=== PATIENT | male | born 1950 | race African-American/Black ===

== ENCOUNTER 2016-08-25 11:17 | Inpatient (IN) | payer MEDICARE ==
[2016-08-25 12:10] LABS: Hematocrit 36 % (42-52); Hemoglobin 11.8 g/dl (14.0-18.0); Mean Corpuscular HGB Conc 33 g/dl (31-36); Mean Corpuscular Hemoglobin 27 pg (27-31); Mean Corpuscular Volume 83 fL (80-94); Mean Platelet Volume 7 um3 (7.4-10.4); Red Blood Count 4.34 10^6/ul (4.0-5.4); Red Cell Distribution Width 14 % (10.5-15); White Blood Count 5.3 10^3/ul (3.5-10.8)
--- NOTE | 2016-08-25 12:15 | RAD ---
INDICATION: Weakness for 2 days COMPARISON: None TECHNIQUE: Noncontrast axial source images were acquired from the skull base to the vertex. FINDINGS: Ventricles/sulci: There is cortical atrophy with compensatory dilatation of the CSF spaces. Brain parenchyma: There is extensive periventricular and subcortical white matter change compatible with chronic ischemia. Intracranial hemorrhage:None. Extra-axial spaces: There are no abnormal extra axial fluid collections or evidence of extra-axial mass. Calvarium: There is no calvarial fracture or other calvarial abnormality. Scalp: There is no evidence of scalp or extracalvarial soft tissue abnormality. Paranasal sinuses/mastoid: The paranasal sinuses and mastoid air cells are clear. Other: None. IMPRESSION: CORTICAL ATROPHY WITH CHRONIC MICROVASCULAR ISCHEMIC CHANGES. NO ACUTE FINDINGS.
[2016-08-25 12:32] LABS: BUN/Creatinine Ratio 16.5 (8-20); Calcium 9.6 mg/dL (8.6-10.3); EGFR African American 107.2 (>60); EGFR Non-African American 83.4 (>60); Globulin 4.2 g/dL (2-4); Potassium 3.8 mmol/L (3.5-5.0); Total Bilirubin 0.8 mg/dL (0.2-1.0); Total Protein 8.2 g/dL (6.4-8.9)
[2016-08-25 12:34] LABS: Troponin I 0.02 ng/mL (<0.04)
[2016-08-25 15:32] LABS: Urine Bacteria Absent (Absent); Urine Bilirubin Negative (Negative); Urine Glucose Negative (Negative); Urine Nitrite Negative (Negative)
[2016-08-25] MEDS ORDERED: Aspirin TAB* 325 MG PO ONE (15:51)
[2016-08-25] MEDS: Atorvastatin* 40 MG TAB PO SCH (16:37)
--- NOTE | 2016-08-25 17:05 | RAD ---
Indication: Stroke. Duplex Doppler sonography of the carotid arteries was performed. The right common carotid artery demonstrates no intimal wall thickening. Minimal plaque is noted in the carotid bulb. Peak systolic velocity of the distal right common carotid artery 68 cm/s. Peak systolic velocity of the proximal right internal carotid artery is 40 cm/s. The ICA/CCA ratio is 0.58. Right vertebral artery demonstrates antegrade flow. The left common carotid artery demonstrates no evidence of intimal wall thickening or plaque. Peak systolic velocity of the distal left common carotid artery is 65 cm/s. Peak systolic velocity of the left internal carotid artery is 37 cm/s. The ICA/CCA ratio is 0.56. Left vertebral artery demonstrates antegrade flow. IMPRESSION: Less than 50% stenosis of both internal carotid arteries with minimal plaque in the right proximal internal carotid artery.
--- NOTE | 2016-08-25 17:53 | RAD ---
Indication: Stroke. Image sequences: Sagittal and axial T1, axial T2, FLAIR, diffusion and susceptibility weighted images of the brain were obtained. Ventricular structures are midline. No midline shift is noted. There is central and cortical atrophy noted. Focal area of restriction of diffusion is noted in the deep white matter of the right frontal lobe. This is consistent with a lacunar infarct. No other areas of restriction of diffusion is noted. The FLAIR images demonstrates periventricular signal abnormalities consistent with chronic ischemic White matter change. The susceptibility weighted images demonstrates multiple areas of punctate susceptibility artifact in the basal ganglia bilaterally as well as in the left occipital lobe. These likely represent sequela from prior hemorrhages. Mastoid air cells are unremarkable. Mucus retention cysts are noted in both maxillary sinuses. IMPRESSION: ATROPHY WITH ACUTE LACUNAR INFARCT IN THE RIGHT FRONTAL LOBE ADJACENT TO THE RIGHT PERIVENTRICULAR WHITE MATTER. AREAS OF SUSCEPTIBILITY IN THE BASAL GANGLIA AND TEMPORAL LOBES BILATERALLY WELL THE LEFT OCCIPITAL LOBE CONSISTENT WITH PRIOR PETECHIAL HEMORRHAGE.
--- NOTE | 2016-08-25 18:39 | HP ---
ADMISSION HISTORY AND PHYSICAL: DATE OF ADMISSION: 08/25/16 PRIMARY CARE PROVIDER: Dr. Crooks. CONSULTING NEUROLOGIST: Dr. Bland. ADMITTING PROVIDER: FLORES Serra. SUPERVISING PHYSICIAN: Dr. Bhavesh Rodríguez* (dictated by FLORES Serra). CHIEF COMPLAINT: Left-sided weakness and lightheadedness. HISTORY OF PRESENT ILLNESS: This is an 66-year-old gentleman with a history of hypertension and obstructive sleep apnea who was seen in his primary care provider's office for the complaint of left hip pain earlier today. It was at that time that his noted that he seems to be dragging his leg and favoring his left arm. He then admitted that he was having left-sided weakness for the last 2 days. The patient has had intermittent hip pain and this is not necessarily related complaint. He denied any associated numbness, tingling, or radiation of his pain down the left leg. He has also been struggling with lightheadedness again probably for several months it seems to be positional in nature. He was treated with oxybutynin for some bladder instability and that was discontinued approximately 6 weeks ago and he noted no improvement in his feelings of lightheadedness since discontinuing that medication. The patient denies any other acute illness recently. No associated chest pain or shortness of breath. The patient is unable to give a clear story if there was a sudden onset in his left-sided weakness. The patient's has noted no changes to his speech habits, facial weakness, changes in behavior. 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 The patient passed a bedside swallow evaluation in the emergency department. Due to these symptoms, the patient was referred for evaluation for admission for concern for CVA. PAST MEDICAL HISTORY: 1. Hypertension. 2. Obstructive sleep apnea. 3. Bladder instability. SURGICAL HISTORY: Hemorrhoidectomy. HOME MEDICATIONS: Amlodipine 5 mg p.o. daily. FAMILY HISTORY: The patient's mother and father both experienced CVA, is mother in her 60s and father about 80 years old. His brother and sister both have hypertension. SOCIAL HISTORY: The patient lives at home with his . He is mostly retired , but works part-time at the [employer]. He denies any smoking history and no regular alcohol consumption. REVIEW OF SYSTEMS: As noted above in HPI. All other systems reviewed and otherwise negative. PHYSICAL EXAMINATION GENERAL: This is a very pleasant middle-aged gentleman accompanied by his . He is in no acute distress. INITIAL VITALS: Temperature 97.8 degrees Fahrenheit, pulse 65 beats per minute , respirator rate 16 per minute, oxygen saturation 99% on room air, and blood pressure 162/111 mmHg. HEENT: Head is normocephalic, atraumatic. Mucous membranes are pink and moist. NECK: Supple and free of lymphadenopathy and no JVD appreciated. RESPIRATORY: Lungs are clear to auscultation without wheezes, crackles, or rhonchi. CARDIOVASCULAR: There is a very faint murmur appreciated, but his rate and rhythm are otherwise regular. ABDOMEN: Abdomen is soft and nontender to palpation. EXTREMITIES: No edema appreciated. NEURO: The patient is alert and appropriately oriented. He has 4/5 left upper extremity strength and 5/5 right upper extremity strength. There is some notable weakness and project engineering manager strength as well as biceps flexion and triceps extension. No notable sensation or sensory deficits. The DTRs are globally intact. Gait was assessed and the patient is somewhat dragging his left leg, but he states that he is also having left hip pain and wound strength is individually assessed. It appears to be intact. LABORATORY EVALUATION: CBC shows white blood cell count of 5300, hemoglobin 11.8 g/dL, platelet count of 215,000. INR of 0.93. Comprehensive metabolic panel is unremarkable with a sodium of 137 mmol/L, potassium 3.8. BUN of 15, creatinine 0.91, lactic acid is 0.7. Transaminases and total bilirubin within normal limits. Troponin negative at 0.02. Urinalysis is unremarkable. IMAGING: EKG shows a sinus rhythm with some J-point elevation in V2 and V3 without an old EKG available for comparison. CT of the brain shows no acute findings, but evidence of chronic ischemic changes. ASSESSMENT AND PLAN: This is a 66-year-old gentleman with a history of hypertension and obstructive sleep apnea who presents with left-sided weakness x2 days. Admitted for concerned for acute CVA. 1. Suspected CVA - initial CT shows no acute abnormalities, but evidence of chronic ischemic changes, which appear to be quite significant. He will be started on aspirin and statin. He did not take his amlodipine this morning. This will be subsequently held at least for the next 24 hours. I plan an MRI of the brain as well as carotid ultrasound, echocardiogram, and maintaining continuous telemetry monitoring. We will obtain a fasting lipid panel as well. I have requested the patient to be evaluated by neurologist Dr. Bland who has been contacted regarding this consult. 2. Lightheadedness - this seems to be somewhat chronic complaints for patients. I suspect that may be he had an old infarct that has been contributing to his complaints of dizziness. It seems to have no impact after stopping his oxybutynin. His amlodipine is old medication. We will check on orthostatic vital sign to evaluate for orthostasis, but doubt that this will be of much benefit. 3. Hypertension-the patient is noted to be quite hypertensive when he reaches the emergency department. He states that he did not take his antihypertensive medications this morning. We will allow for permissive hypertension for at least the next 24 hours and continue to hold his amlodipine. 4. Obstructive sleep apnea - the patient is compliant with CPAP at home and his will bring him CPAP machine into the hospital for use during his hospitalization. 5. Code status is full. 6. Healthcare proxy is his . DISPOSITION: The patient is being admitted to inpatient status with anticipated length of stay to be greater than 2 midnights. FLORES SERRA CC: Dr. Crooks* [id number]/[facility] #: [id number] DOLLY
--- NOTE | 2016-08-25 20:02 | CONS ---
CONSULTATION REPORT: DATE OF CONSULT: 08/25/2016. PATIENT OF: FLORES Reilly HISTORY: This is a 66-year-old man without any prior history of stroke comes in with a 2-day history of continuing left arm and leg weakness with some numbness in the left hand, but not in the foot or face. He denies any headache to me. He notes a change in his gait. He also notes some left hip pain since this has started in the past couple of days. He has not fallen. He comes in because symptoms have persisted. PAST MEDICAL HISTORY: He has a long-standing history of hypertension. He denies any memory problems. PAST SURGICAL HISTORY: He has had hemorrhoidectomy as his only surgery. MEDICATIONS AT HOME: Include Norvasc 5 mg daily. ALLERGIES: He has no known drug allergies. FAMILY HISTORY: There is a family history of stroke in his mother. SOCIAL HISTORY: He does not smoke, drink, or use drugs. REVIEW OF SYSTEMS: Negative in all 14 spheres other than the HPI. PHYSICAL EXAM: Temperature 97.5, pulse 73, respiratory rate 18, blood pressure 134/90. He is alert and oriented x3 with normal speech and comprehension. Cranial nerves II through XII were intact. There was minor facial asymmetry with left smile being slightly less than the right; this is within the limits of normal. Motor exam revealed trace weakness in the right arm and leg with mild pronator drift. He had decreased fine motor skills in the left hand. His gait showed a mild limp, appearing slightly weak on that side as well as he expressed some pain. Reflexes were 1 and equal. Toes were downgoing. Neck was supple. Chest: Clear. Cardiovascular: Regular rate and rhythm. Abdomen: Soft with positive bowel sounds. DIAGNOSTIC STUDIES/LAB DATA: I reviewed his CT scan which showed significant diffuse white matter disease. His EKG showed normal sinus rhythm with probable left ventricular hypertrophy. His carotid Doppler and MRI scan are in the process of being done. His UA was negative. White count 5.3, hematocrit 36, platelets 215. INR 0.93. CMP was normal other than globulin of 4.2. He will also be getting a cardiac echo with bubble study. He will be getting fasting lipids in the morning. PLAN: He is being treated with aspirin 325 a day and Lipitor 40 [address] this point[address] Morin is on-call as of now and will be seeing this patient in followup. Thank you for sharing his case. [id number]/[facility] #: [id number] DOLLY
[2016-08-26 05:41] LABS: Hematocrit 35 % (42-52); Hemoglobin 11.5 g/dl (14.0-18.0); Mean Corpuscular HGB Conc 33 g/dl (31-36); Mean Corpuscular Hemoglobin 27 pg (27-31); Mean Corpuscular Volume 83 fL (80-94); Mean Platelet Volume 8 um3 (7.4-10.4); Red Cell Distribution Width 15 % (10.5-15); White Blood Count 5.6 10^3/ul (3.5-10.8)
[2016-08-26 05:52] LABS: BUN/Creatinine Ratio 18.2 (8-20); Calcium 9.2 mg/dL (8.6-10.3); EGFR African American 97.3 (>60); EGFR Non-African American 75.6 (>60); HDL Cholesterol 98.6 mg/dL; Potassium 3.9 mmol/L (3.5-5.0)
[2016-08-26] MEDS: Aspirin Low Dose CHEW TAB* 81 MG PO SCH (08:17)
--- NOTE | 2016-08-26 14:35 | ECHO ---
Patient: PHANI BLANKENSHIP [facility] Rec#: [id number] : 1950 Date: 08/26/2016 Age: 66y Height: 177.8 cm / 70.0 in Weight: 74.84 kg / 164.9 lbs Sex: M BSA: 1.92 Room#: 446 Admit Date#: 08/25/2016 Type: Inpatient Referring: Lev Bo Reading: Miriam Vargas MD Tip Inserter: Ghazala Huizar RDCS,RDMS CC: Michael Crooks MD Transthoracic Echocardiogram Indication: CVA BP: 142/96 HR: 62 Rhythm: NSR Indications Cerebrovascular Disease Findings History: HTN, sleep apnea Technical Comments: The study quality is good. Completed 1330 Left Ventricle: The left ventricular chamber size is normal. Mild concentric left ventricular hypertrophy is observed. Global left ventricular wall motion and contractility are within normal limits. The estimated ejection fraction is 55-60%. Abnormal left ventricular diastolic filling is observed, consistent with impaired relaxation. Left Atrium: The left atrium is mildly dilated. Right Ventricle: The right ventricular chamber size and systolic function are within normal limits. Right Atrium: The right atrial cavity size is normal. A patent foramen ovale is not demonstrated with color Doppler and agitated contrast. There is evidence of an atrial septal aneurysm. Aortic Valve: The aortic valve is trileaflet. There is aortic annular calcification. There is a trace of aortic regurgitation. There is no evidence of aortic stenosis. Mitral Valve: The mitral valve leaflets appear normal. There is trace to mild mitral regurgitation. There is no evidence of mitral stenosis. Tricuspid Valve: The tricuspid valve leaflets are normal. There is trace to mild tricuspid regurgitation. No pulmonary hypertension is noted. Pulmonic Valve: The pulmonic valve appears normal. There is a trace pulmonic regurgitation. Pericardium: There is no significant pericardial effusion. Aorta: There is mild dilatation of the ascending aorta. There is no dilatation of the aortic arch. There is no dilation of the aortic root. Pulmonary Artery: The main pulmonary artery is not well visualized. Venous: The inferior vena cava appears normal in size. There is less than 50% respiratory change in the inferior vena cava dimension. Contrast: Intravenous agitated saline contrast was used to assess intracardiac shunting. Images 79 and 80 Conclusions Mild concentric left ventricular hypertrophy is observed. Global left ventricular wall motion and contractility are within normal limits. The estimated ejection fraction is 55-60%. Abnormal left ventricular diastolic filling is observed, consistent with impaired relaxation. The right ventricular chamber size and systolic function are within normal limits. The left atrium is mildly dilated. There is evidence of an atrial septal aneurysm, no evidence of shunting based on color and bubble studies. There is a trace of aortic regurgitation. There is trace to mild mitral regurgitation. There is trace to mild tricuspid regurgitation. No pulmonary hypertension is noted. There is mild dilatation of the ascending aorta. No prior study to compare. Measurements Name Value Normal Range RVIDd (AP) 2D 2.9 cm (0.9 - 2.6) RAd ISD 4CH 4.9 cm (3.4 - 4.9) RA (A4C)W 4.6 cm (2.9 - 4.6) IVSd (2D) 1.3 cm (0.6 - 1) LVPWd (2D) 1.3 cm (0.6 - 1) LVIDd (2D) 4 cm (3.6 - 5.4) LVIDs (2D) 2.5 cm - LV FS (2D) 38 % (25 - 45) Aortic Annulus 2.1 cm (1.4 - 2.6) Ao root diameter (2D) 3 cm (2.1 - 3.5) Ascending Ao 3.7 cm (2.1 - 3.4) Aortic arch 2.5 cm (1.8 - 3.4) LA dimension (AP) 2D 3.9 cm (2.3 - 3.8) LAd ISD 4CH 4.6 cm (2.9 - 5.3) LA ISD 4CH W 4.7 cm (2.5 - 4.5) Name Value Normal Range LA ESV SP 4CH (A/L) 67.77 ml - LA ESV SP 2CH (A/L) 78.78 ml - LA ESV BP (A/L) 73.79 ml - LA ESV BP (A/L) index 38 ml/m2 - LA ESV SP 4CH (MOD) 60.51 ml - LA ESV SP 2CH (MOD) 75.25 ml - Name Value Normal Range MV E-wave Vmax 0.6 m/sec - MV deceleration time 284.4 msec - MV A-wave Vmax 0.5 m/sec - MV E:A ratio 4.2 ratio - P. vein S-wave Vmax 0.7 m/sec - P. vein D-wave Vmax 0.3 m/sec - P. vein S:D Vmax ratio 2 ratio - P. vein A-wave duration 100 msec - LV septal e' Vmax 0.08 m/sec - LV lateral e' Vmax 0.07 m/sec - LV E:e' septal ratio 7.5 ratio - LV E:e' lateral ratio 8.6 ratio - Name Value Normal Range AV Vmax 1.3 m/sec - AV VTI 27.8 cm - AV peak gradient 7 mmHg - AV mean gradient 3.4 mmHg - LVOT Vmax 1 m/sec - LVOT VTI 20.4 cm - LVOT peak gradient 4 mmHg - LVOT mean gradient 1.7 mmHg - SV LVOT 243.74 ml - DAVIDSON Vmax 0.5 m/sec - Name Value Normal Range TR Vmax 2.6 m/sec - TR peak gradient 27 mmHg - RAP 3 mmHg - RVSP 30 mmHg - IVC diameter 1.9 cm - Name Value Normal Range PV Vmax 0.9 m/sec - PV peak gradient 3.2 mmHg -
--- NOTE | 2016-08-26 15:29 | PN ---
Subjective Date of Service: 08/26/16 Interval History: Mr. Bass states that he is feeling well today. He continues to have some left upper extremity weakness and to drag his left foot when walking. He denies other complaint including chest pain, SOB, nausea, or abdominal pain. He is tolerating oral intake well. Objective Active Medications: Aspirin (Aspirin Low Dose Tab*) 81 mg PO DAILY [facility] Atorvastatin Calcium (Lipitor*) 40 mg PO 1700 [facility] Vital Signs 08/25/16 08/25/16 08/25/16 15:25 16:49 16:50 Temperature 97.5 F Pulse Rate 71 73 Respiratory 16 18 Rate Blood Pressure 134/90 174/100 (mmHg) O2 Sat by Pulse 99 Oximetry 08/25/16 08/25/16 08/26/16 19:55 20:00 00:17 Temperature 98.0 F 98.0 F Pulse Rate 74 61 Respiratory 18 18 16 Rate Blood Pressure 151/82 133/88 (mmHg) O2 Sat by Pulse 100 98 Oximetry 08/26/16 08/26/16 08/26/16 04:42 07:31 08:00 Temperature 98.2 F 97.6 F Pulse Rate 62 60 Respiratory 16 16 16 Rate Blood Pressure 142/96 140/102 (mmHg) O2 Sat by Pulse 100 96 Oximetry 08/26/16 11:37 Temperature 98.2 F Pulse Rate 63 Respiratory 16 Rate Blood Pressure 142/92 (mmHg) O2 Sat by Pulse 100 Oximetry Oxygen Devices in Use Now: None Appearance: Elderly male sitting up in bed in NAD Eyes: No Scleral Icterus Ears/Nose/Mouth/Throat: Mucous Membranes Moist Neck: Trachea Midline Respiratory: Symmetrical Chest Expansion and Respiratory Effort, Clear to Auscultation Cardiovascular: NL Sounds; No Murmurs; No JVD, No Edema Abdominal: NL Sounds; No Tenderness; No Distention Extremities: No Edema Skin: No Rash or Ulcers Neurological: Alert and Oriented x 3, - - Left auto wash buffer +4/5, mild pronator drift on left. Intact strength to B LEs and R UE. Minimal left sided facial droop. Nutrition: Taking PO's Result Diagrams: 08/26/16 05:08 08/26/16 05:08 Assess/Plan/Problems-Billing Assessment: Mr. Bass is a 66 yo male with a PMH of HTN and KAMI who was admitted on 5/16/17 with left sided weakness x 2 days with new CVA. - Patient Problems (1) CVA (cerebral vascular accident) Comment: No change in neuro exam. MRI confirms new cva with acute lacunar infarct in the right frontal lobe. Appreciate neuro consultation. BP elevated but allowing for permissive hypertension during acute period. Lipids relatively well controlled, total cholesterol 211, plan to continue newly started statin. Continue aspirin. No evidence of diabetes. No evidence of afib via telemetry, continue to monitor overnight. Echo with intact wall motion and no valvular abnormalities, no PFO identified. Continue CPAP for KAMI , patient reports good compliance. Continue PT. (2) Hypertension Comment: Plan to resume amlodipine in AM if approved per neurology. (3) Sleep apnea Comment: Continue CPAP. (4) DVT prophylaxis (5) Full code status
[2016-08-26] MEDS: Atorvastatin* 40 MG TAB PO SCH (16:42)
[2016-08-26] MEDS: Heparin VIAL(*) 5000 UNITS/ML VIAL (FIVE THOUSAND) SUBCUT SCH (20:45)
[2016-08-27] MEDS: Heparin VIAL(*) 5000 UNITS/ML VIAL (FIVE THOUSAND) SUBCUT SCH (05:37)
[2016-08-27 07:33] VITALS: BP 143/95
[2016-08-27] MEDS: Aspirin Low Dose CHEW TAB* 81 MG PO SCH (09:15)
--- NOTE | 2016-08-27 10:39 | PN ---
Subjective Date of Service: 08/27/16 Interval History: Mr. Bass denies complaint and is eager for discharge to home today. Objective Active Medications: Amlodipine Besylate (Norvasc Tab*) 5 mg PO DAILY [facility] Aspirin (Aspirin Low Dose Tab*) 81 mg PO DAILY [facility] Atorvastatin Calcium (Lipitor*) 40 mg PO 1700 [facility] Heparin Sodium (Porcine) (Heparin Vial(*)) 5,000 units SUBCUT Q8HR [facility] Vital Signs 08/26/16 08/26/16 08/26/16 11:37 15:45 19:50 Temperature 98.2 F 98.1 F 98.0 F Pulse Rate 63 73 73 Respiratory 16 20 20 Rate Blood Pressure 142/92 147/92 145/100 (mmHg) O2 Sat by Pulse 100 97 97 Oximetry 08/26/16 08/26/16 08/27/16 20:00 23:42 03:48 Temperature 98.8 F 98.5 F Pulse Rate 66 62 Respiratory 19 18 16 Rate Blood Pressure 146/100 131/82 (mmHg) O2 Sat by Pulse 99 98 Oximetry 08/27/16 08/27/16 07:20 07:34 Temperature 98.0 F Pulse Rate 64 Respiratory 16 16 Rate Blood Pressure 143/95 (mmHg) O2 Sat by Pulse 97 Oximetry Oxygen Devices in Use Now: None Appearance: Male ambulating in hallway with walker in NAD Eyes: No Scleral Icterus Ears/Nose/Mouth/Throat: Mucous Membranes Moist Neck: Trachea Midline Respiratory: Symmetrical Chest Expansion and Respiratory Effort, Clear to Auscultation Cardiovascular: NL Sounds; No Murmurs; No JVD, No Edema Abdominal: NL Sounds; No Tenderness; No Distention Extremities: No Edema Skin: No Rash or Ulcers Neurological: Alert and Oriented x 3, - - Left sided weakness persists, +4/5 upper and lower extremity, mild left sided facial droop Nutrition: Taking PO's Result Diagrams: 08/26/16 05:08 08/26/16 05:08 Assess/Plan/Problems-Billing Assessment: Mr. Bass is a 66 yo male with a PMH of HTN and KAMI who was admitted on 08/25/16 with left sided weakness x 2 days with new CVA. - Patient Problems (1) CVA (cerebral vascular accident) Comment: No change in neuro exam. MRI confirms new cva with acute lacunar infarct in the right frontal lobe. Appreciate neuro consultation. Resume amlodipine, will need follow up with PCP to ensure adequate BP control. Lipids relatively well controlled, total cholesterol 211, plan to continue newly started statin. Continue aspirin. No evidence of diabetes. No evidence of afib via telemetry. Echo with intact wall motion and no valvular abnormalities , no PFO identified. Continue CPAP for KAMI, patient reports good compliance. Continue PT. (2) Hypertension Comment: Resume amlodipine. (3) Sleep apnea Comment: Continue CPAP. (4) DVT prophylaxis (5) Full code status Status and Disposition: Discharge to home.
[2016-08-27] MEDS ORDERED: amLODIPine TAB* 5 MG PO SCH (11:00)
--- NOTE | 2016-08-28 01:36 | DS ---
HOSPITAL MEDICINE DISCHARGE SUMMARY: DATE OF ADMISSION: 08/25/16 DATE OF DISCHARGE: 08/27/16 PRIMARY CARE PHYSICIAN: Dr. Crooks. ATTENDING PHYSICIAN: King Valdez MD* (dictation provided by Kajal Alvarez NP ). PRIMARY DIAGNOSES: Ischemic cerebrovascular accident with acute lacunar infarct in the right frontal lobe with left-sided weakness. SECONDARY DIAGNOSES: 1. Hypertension. 2. Obstructive sleep apnea. 3. Bladder instability. 4. History of hemorrhoidectomy. MEDICATIONS AT THE TIME OF DISCHARGE: 1. Amlodipine 5 mg p.o. daily. 2. Atorvastatin 40 mg p.o. daily. 3. Aspirin 81 mg p.o. daily. HOSPITAL COURSE: Mr. Bass is a 66-year-old male with past medical history of hypertension, obstructive sleep apnea who presented to the hospital on 07/26/16 with concern for left-sided weakness and lightheadedness. Please see the dictated H and P from FLORES Reilly, for complete details. In brief, the patient had 2 days of left-sided weakness which he only reported after going to his primary provider's office for left hip pain. As he was outside for the tPA window, given that it had been 2 days since he had developed weakness, he was admitted to the hospital for workup of suspected CVA. Mr. Bass had a CT of the brain on arrival which was read as follows: "Cortical atrophy with chronic microvascular ischemic changes. No acute findings." The brain MRI which followed showed "atrophy with acute lacunar infarct in the right frontal lobe adjacent to the right periventricular white matter. Areas of susceptibility in the basal ganglia and temporal lobes bilaterally as well as the left occipital lobe consistent with prior petechial hemorrhage." The patient had a carotid Doppler study which is read as follows. "Less than 50% stenosis of both internal carotid arteries with minimal plaque in the right proximal internal carotid artery." The patient was seen in consultation by Dr. Bland from Neurology. He agreed that the patient had ischemic CVA and agreed with the workup as laid out above. The patient's transthoracic echocardiogram showed normal global left ventricular wall motion and contractility with an estimated ejection fraction of 55% to 60%. There was abnormal left ventricular diastolic filling observed with no significant valvular abnormalities. In terms of the cause of Mr. Bass's stroke, he does have hypertension and is on amlodipine at home. During this hospitalization, his amlodipine had been held in an effort to provide for permissive hypertension and increased cerebral perfusion. His blood pressure has been running approximately 130s to 140s. I am resuming amlodipine now. His cholesterol is 212 with HDL of 98.6. He has been started on atorvastatin 40 mg daily. He has also been started on low dose aspirin. The patient had no evidence on telemetry of atrial fibrillation. Mr. Bass is doing well today. He continues to have mild left-sided weakness in both arm and leg causing some minimal gait impairment. Plan is for him to be discharged to home on a new regimen of his amlodipine, atorvastatin, aspirin and to follow up with physical therapy and Dr. Crooks per routine after the hospitalization. Mr. Bass is medically stable for discharge to home. DISPOSITION: Home. DIET: Low salt. ACTIVITY: As tolerated. FOLLOWUP: Follow up with Dr. Crooks. TIME SPENT: Approximately 60 minutes was spent in the discharge of this patient , more than half that time was spent with him at the bedside reviewing the events leading up to this hospitalization, performing the physical examination, and reviewing the plan of care. KAJAL ALVAREZ NP CC: Dr. Crooks* [id number]/[facility] #: [id number] DOLLY
--- NOTE | 2016-08-28 07:17 | ED ---
osmin Morris Timothy, scribed for Dominic Valles MD on 08/25/16 at 1148 . Dizziness - HPI Summary HPI Summary: Saul Bass is a 66 yo male presenting to [facility] with dizziness and left hand weakness and 4/10 pain since 08/23/16. He states he also jordan sbeen having some left hip weakness as well. His is present in room. His MHx includes HTN, sleep apnea, hemorrhoidectomy. His PCP is Dr. Valdivia. - History Of Current Complaint Chief Complaint: EDNeurologicalDeficit Stated Complaint: WEAKNESS Time Seen by Provider: 08/25/16 11:38 Hx Obtained From: Patient Onset/Duration: Still Present Timing: Constant Severity Initially: Moderate Severity Currently: Moderate Character: Dizzy Associated Signs And Symptoms: Positive: Other: - left hand weakness, left hip weakness - Allergies/Home Medications Allergies/Adverse Reactions: Allergies Allergy/AdvReac Type Severity Reaction Status Date / Time No Known Allergies Allergy Verified 04/09/15 13:13 PMH/Surg Hx/FS Hx/Imm Hx Cardiovascular History: Reports: Hx Hypertension Respiratory History: Reports: Hx Sleep Apnea - Surgical History Surgery Procedure, Year, and Place: Hemorrhoidectomy Infectious Disease History: No Infectious Disease History: Denies: Traveled Outside the [place] in Last 30 Days - Family History Known Family History: Positive: Cardiac Disease, Hypertension, Diabetes, Other - CVA - Social History Alcohol Use: None Substance Use Type: Reports: None Have You Smoked in the Last Year: No Review of Systems Constitutional: Negative Negative: Fever, Chills Eyes: Negative Negative: Erythema ENT: Negative Negative: Sore Throat Cardiovascular: Negative Negative: Palpitations, Chest Pain Respiratory: Negative Negative: Shortness Of Breath, Cough Gastrointestinal: Negative Negative: Abdominal Pain, Vomiting, Nausea Genitourinary: Negative Negative: dysuria, hematuria Musculoskeletal: Negative Negative: Edema - legs Skin: Negative Negative: Rash Neurological: Other - dizzines Positive: Weakness - left hand, left hip Psychological: Normal All Other Systems Reviewed And Are Negative: Yes Physical Exam - Summary Physical Exam Summary: Constitutional: Well-developed, Well-nourished, Alert. (-) Distressed Skin: Warm, Dry HENT: Eyes: Conjunctiva normal Neck: Musculoskeletal ROM normal neck. (-) JVD, (-) Stridor, (-) Tracheal deviation Cardio: Rhythm regular, rate normal, Heart sounds normal; Intact distal pulses; The pedal pulses are 2+ and symmetric. Radial pulses are 2+ and symmetric. (-) Murmur Pulmonary/Chest wall: Effort normal. (-) Respiratory distress, (-) Wheezes, (-) Rales Abd: Soft. (-) Tenderness, (-) Distension, (-) Guarding, (-) Rebound Musculoskeletal: (-) Edema Lymph: (-) Cervical adenopathy Neuro: Alert, Oriented x3, Strength normal, Cranial nerves II-XII are grossly intact. (+) Dysmetria left side, (-) Nystagmus, (-) Ataxia by finger to nose testing, (-) Sensory deficit. resting facial droop lft side, tongue deviation left, lle weakness. Psych: Mood and affect Normal Triage Information Reviewed: Yes Vital Signs On Initial Exam: Initial Vitals Temp Pulse Resp BP Pulse Ox 97.8 F 65 16 162/111 99 08/25/16 11:23 08/25/16 11:23 08/25/16 11:23 08/25/16 11:23 08/25/16 11:23 Vital Signs Reviewed: Yes Diagnostics - Vital Signs Vital Signs Temp Pulse Resp BP Pulse Ox 08/25/16 11:23 97.8 F 65 16 162/111 99 - Laboratory Lab Results: Lab Results 08/25/16 08/25/16 08/25/16 Range/Units 11:49 11:49 11:49 WBC 5.3 (3.5-10.8) 10^3/ul RBC 4.34 (4.0-5.4) 10^6/ul Hgb 11.8 L (14.0-18.0) g/dl Hct 36 L (42-52) % MCV 83 (80-94) fL MCH 27 (27-31) pg MCHC 33 (31-36) g/dl RDW 14 (10.5-15) % Plt Count 215 (150-450) 10^3/ul MPV 7 L (7.4-10.4) um3 Neut % (Auto) 65.0 (38-83) % Lymph % (Auto) 21.0 L (25-47) % [place] % (Auto) 9.3 H (1-9) % Eos % (Auto) 3.8 (0-6) % Baso % (Auto) 0.9 (0-2) % Absolute Neuts (auto) 3.4 (1.5-7.7) 10^3/ul Absolute Lymphs (auto) 1.1 (1.0-4.8) 10^3/ul Absolute Monos (auto) 0.5 (0-0.8) 10^3/ul Absolute Eos (auto) 0.2 (0-0.6) 10^3/ul Absolute Basos (auto) 0 (0-0.2) 10^3/ul Absolute Nucleated RBC 0.01 10^3/ul Nucleated RBC % 0.2 INR (Anticoag Therapy) 0.93 (0.89-1.11) Sodium 137 (133-145) mmol/L Potassium 3.8 (3.5-5.0) mmol/L Chloride 102 (101-111) mmol/L Carbon Dioxide 25 (22-32) mmol/L Anion Gap 10 (2-11) mmol/L BUN 15 (6-24) mg/dL Creatinine 0.91 (0.67-1.17) mg/dL Est GFR ( Amer) 107.2 (>60) Est GFR (Non-Af Amer) 83.4 (>60) BUN/Creatinine Ratio 16.5 (8-20) Glucose 93 (70-100) mg/dL Lactic Acid (0.5-2.0) mmol/L Calcium 9.6 (8.6-10.3) mg/dL Total Bilirubin 0.80 (0.2-1.0) mg/dL AST 23 (13-39) U/L ALT 20 (7-52) U/L Alkaline Phosphatase 65 (34-104) U/L Troponin I 0.02 (<0.04) ng/mL Total Protein 8.2 (6.4-8.9) g/dL Albumin 4.0 (3.2-5.2) g/dL Globulin 4.2 H (2-4) g/dL Albumin/Globulin Ratio 1.0 (1-3) // Range/Units 11:49 WBC (3.5-10.8) 10^3/ul RBC (4.0-5.4) 10^6/ul Hgb (14.0-18.0) g/dl Hct (42-52) % MCV (80-94) fL MCH (27-31) pg MCHC (31-36) g/dl RDW (10.5-15) % Plt Count (150-450) 10^3/ul MPV (7.4-10.4) um3 Neut % (Auto) (38-83) % Lymph % (Auto) (25-47) % [place] % (Auto) (1-9) % Eos % (Auto) (0-6) % Baso % (Auto) (0-2) % Absolute Neuts (auto) (1.5-7.7) 10^3/ul Absolute Lymphs (auto) (1.0-4.8) 10^3/ul Absolute Monos (auto) (0-0.8) 10^3/ul Absolute Eos (auto) (0-0.6) 10^3/ul Absolute Basos (auto) (0-0.2) 10^3/ul Absolute Nucleated RBC 10^3/ul Nucleated RBC % INR (Anticoag Therapy) (0.89-1.11) Sodium (133-145) mmol/L Potassium (3.5-5.0) mmol/L Chloride (101-111) mmol/L Carbon Dioxide (22-32) mmol/L Anion Gap (2-11) mmol/L BUN (6-24) mg/dL Creatinine (0.67-1.17) mg/dL Est GFR ( Amer) (>60) Est GFR (Non-Af Amer) (>60) BUN/Creatinine Ratio (8-20) Glucose (70-100) mg/dL Lactic Acid 0.7 (0.5-2.0) mmol/L Calcium (8.6-10.3) mg/dL Total Bilirubin (0.2-1.0) mg/dL AST (13-39) U/L ALT (7-52) U/L Alkaline Phosphatase (34-104) U/L Troponin I (<0.04) ng/mL Total Protein (6.4-8.9) g/dL Albumin (3.2-5.2) g/dL Globulin (2-4) g/dL Albumin/Globulin Ratio (1-3) Result Diagrams: 08/26/16 05:08 08/26/16 05:08 Lab Statement: Any lab studies that have been ordered have been reviewed, and results considered in the medical decision making process. - CT Brain CT Interpretation: No Acute Changes - IMPRESSION: CORTICAL ATROPHY WITH CHRONIC MICROVASCULAR ISCHEMIC CHANGES. NO ACUTE FINDINGS. CT Interpretation Completed By: Radiologist - EKG 1140 Cardiac Rate: NL - 63 BPM EKG Interpretation: NSR @ 63 BPM, ST elevation in V2 National Institutes Of Health - NIH Scale Level of Consciousness: Alert/Keenly Responsive Ask Patient the Month and His/Her Age: Both Correct Ask Pt to Open/Close Eyes and Soil Tester/Release Non-Paretic Hand: Both Correctly Best Gaze (Only Horizontal Eye Movement): Normal Visual Field Testing: No Visual Loss Facial Paresis-Pt to Smile & Close Eyes or Grimace Symmetry: Minor Paralysis - left side droop with tongue deivation left Motor Function - Right Arm: No Drift-Holds 10 Seconds Motor Function - Left Arm: Drifts LT 10 seconds Motor Function - Right Leg: No Drift-Holds 10 Seconds Motor Function - Left Leg: Effort Against [place] Limb Ataxia-Must be out of Proportion to Weakness Present: Present in One Limb - left Sensory (Use Pinprick to Test Arms/Legs/Trunk/Face): Normal Best Language (Describe Picture, Name Items): No Aphasia Dysarthria (Read Several Words): Normal Extinction and Inattention: No Abnormality Total Score: 5 Dizzy Course/Dx - Course Assessment/Plan: Saul Bass is a 66 yo male [place] [facility] [place] and left hand weakness with 4/10 pain since 08/23/16. His CT brain suggests no acute changes. After clinical examination and review of his lab and imaging studies as well as discussion with Dr. Linton, he will be admitted [place] [facility] [place] [place] - Diagnoses Differential Diagnosis/HQI/PQRI: CVA Provider Diagnoses: CVA (cerebral vascular accident) - Provider Notifications Discussed Care Of Patient with: 1405 - Dr. Rodríguez (hospitalist) - discussed Pt condition, accepts Pt for admission. Instructed by Provider To: Admit As Inpatient Discharge - Discharge Plan Condition: Stable Disposition: ADMITTED TO [facility] documentation as recorded by the osmin moctezuma Timothy accurately reflects the service I personally performed and the decisions made by me, Dominic Valles MD.
== END 2016-08-27 11:53 | disposition home or self-care (01) | DRG 65 ==
LOC: ED 11:17 → MEDTELE 14:24
PROVIDERS: ADMIT Hospitalist; ATTEND Internal Medicine
DX: I63.9 Cerebral infarction, unspecified (principal); G81.94 Hemiplegia, unspecified affecting left nondominant side; I10 Essential (primary) hypertension; G47.33 Obstructive sleep apnea (adult) (pediatric); N32.9 Bladder disorder, unspecified; I65.21 Occlusion and stenosis of right carotid artery; R29.705 NIHSS score 5; R29.810 Facial weakness; Z82.3 Family history of stroke; Z83.3 Family history of diabetes mellitus; Z82.49 Family history of ischemic heart disease and other diseases of the circulatory system; Z79.82 Long term (current) use of aspirin
CPT/HCPCS: 36415; 70450; 70551; 80048; 80053; 80061; 81003; 81015; 83605; 84484; 85025; 85610; 93005; 93306; 93880; A9270-GY; J1644

== ENCOUNTER 2017-06-04 07:27 | Emergency (ER) | payer MEDICARE ==
[2017-06-04 07:44] VITALS: BP 138/99
--- NOTE | 2017-06-04 08:29 | RAD ---
INDICATION: Lateral elbow pain since minor traumatic injury 1 month earlier COMPARISON: None. TECHNIQUE: 4 views right elbow. REPORT: The visualized bones of the right elbow are well corticated and properly aligned. There is no radiographically apparent fracture or dislocation. There is no radiographic evidence of pathologic joint effusion. IMPRESSION: Normal radiograph of the right elbow. If the patient's symptoms persist further follow-up imaging is recommended.
--- NOTE | 2017-06-04 09:11 | UC ---
Elbow Pain - HPI Summary HPI Summary: RIGHT ELBOW PAIN FOR 1 MONTH AFTER ACCIDENTALLY STRIKING ELBOW ON THE WALL. - History of Current Complaint Chief Complaint: UCUpperExtremity Stated Complaint: ELBOW PAIN Time Seen by Provider: 06/04/17 08:03 Hx Obtained From: Patient Onset/Duration: Weeks, Traumatic Severity Initially: Mild Severity Currently: Moderate Pain Intensity: 3 Pain Scale Used: 0-10 Numeric Location Of Pain: Is Discrete @ - RIGHT ELBOW Character: Sharp Aggravating Factor(s): Movement, Twisting Alleviating Factor(s): Rest Associated Signs And Symptoms: Positive: Negative - Allergies/Home Medications Allergies/Adverse Reactions: Allergies Allergy/AdvReac Type Severity Reaction Status Date / Time lactose Allergy GI Upset Verified 06/04/17 07:39 Home Medications: Home Medications Oxybutynin Chloride [Oxybutynin Chloride ER] 10 mg PO DAILY 06/04/17 [History Confirmed 06/04/17] PMH/Surg Hx/FS Hx/Imm Hx Endocrine History: Dyslipidemia Cardiovascular History: Hypertension - Surgical History Surgical History: Yes Surgery Procedure, Year, and Place: Hemorrhoidectomy - Family History Known Family History: Positive: Cardiac Disease, Hypertension, Diabetes, Other - CVA - Social History Alcohol Use: None Substance Use Type: None Smoking Status (MU): Never Smoked Tobacco Have You Smoked in the Last Year: No - Immunization History Most Recent Influenza Vaccination: Never Most Recent Pneumonia Vaccination: Never Review of Systems Constitutional: Negative Skin: Negative Respiratory: Negative Cardiovascular: Negative Gastrointestinal: Negative Musculoskeletal: Arthralgia All Other Systems Reviewed And Are Negative: Yes Physical Exam Triage Information Reviewed: Yes Appearance: Well-Appearing, No Pain Distress, Well-Nourished Vital Signs: Initial Vital Signs Temp 97.5 F 06/04/17 07:41 Pulse 59 06/04/17 07:41 Resp 16 06/04/17 07:41 BP 138/99 06/04/17 07:41 Pulse Ox 99 06/04/17 07:41 Vital Signs Reviewed: Yes Eyes: Positive: Conjunctiva Clear ENT: Positive: Hearing grossly normal Neck: Positive: Supple Respiratory: Positive: No respiratory distress, No accessory muscle use Cardiovascular: Positive: Pulses Normal Abdomen Description: Positive: Soft Musculoskeletal: Positive: ROM Intact, No Edema, Other: - NOT TENDER OVER ANY BONY PROMINENCES OR SOFT TISSUES OF RIGHT ELBOW. UNABLE TO ELICIT PAIN BY PALPATION. PAIN REPRODUCED WITH SUPINATION AGAINST RESISTANCE. Neurological: Positive: Alert Psychological: Positive: Age Appropriate Behavior Skin: Negative: rashes Diagnostics - Radiology RIGHT ELBOW XRAY Xray Interpretation: No Acute Changes Radiology Interpretation Completed By: Radiologist Elbow Pain Course/Dx - Differential Dx/Diagnosis Provider Diagnoses: RIGHT LATERAL EPICONDYLITIS Discharge - Discharge Plan Condition: Stable Disposition: HOME Patient Education Materials: Tennis Elbow (ED) Referrals: Michael Crooks MD [Primary Care Provider] - If Needed Allison Herron MD [Medical Doctor] - 1 Week Additional Instructions: TENNIS ELBOW/GOLFER'S ELBOW What is elbow tendinopathy? Elbow tendinopathy is a condition that causes elbow pain and forearm weakness. Doctors use the term "elbow tendinopathy" when people have a problem with a tendon in the elbow. Tendons are strong bands of tissue that connect muscles to bones. Depending on which elbow tendon is injured , the condition is also known as "tennis elbow" or "golf elbow." In most people with elbow tendinopathy, the tendons are not inflamed or swollen. If they do get inflamed or swollen, doctors call it "tendinitis." Tendinitis usually starts suddenly. Tendinopathy usually happens over a longer period of time. What causes elbow tendinopathy? This condition can happen as people get older, especially if they do a lot of work or activity using their elbow and forearm. Tendinitis can happen when people get hurt or do the same movements over and over. What are the symptoms of elbow tendinopathy? The most common symptoms are: -Elbow pain The pain can start slowly or suddenly. It can spread to the upper arm or forearm. -Weakness of the forearm muscles -Swelling (if people have tendinitis) Is there a test for elbow tendinopathy? No. But your doctor or nurse should be able to tell if you have it by talking with you and doing an exam. How is elbow tendinopathy treated? Most of the time, this condition will get better on its own, but it can take months to heal completely. To help get better , you can: -Rest your elbow and arm - Ask your doctor about wearing an arm brace. -Take a pain-relieving medicine - Your doctor might recommend that you take a medicine such as acetaminophen (sample brand name: Tylenol), ibuprofen (sample brand names: Advil, Motrin), or naproxen (sample brand names: Aleve, Naprosyn). Is there anything I can do on my own to feel better? Yes. You can do different exercises to help with your symptoms. The right exercises for you will depend on which elbow tendon is injured. The following exercises can help stretch the lower arm muscles: -Tennis elbow stretch Hold your injured arm straight out, and point your fingers down to the ground. Use your other hand (with the thumb pressing on the palm) to grab this hand. Then press down on the back of the hand to bend the wrist more (picture 1). Hold this position for 30 seconds. Repeat the stretch 3 times. Do this exercise 1 time a day. -Golf elbow stretch Stand an arm's length away from the wall, with the injured arm closest to the wall. Put your palm on the wall, with your fingers pointing down. Press gently against the wall to stretch your muscles. Hold this position for 30 seconds. Repeat the stretch 3 times. Do this exercise 1 time a day. Other types of exercises can help make the forearm muscles stronger. Your doctor , nurse, or physical therapist (exercise expert) can show you how to do these types of exercises. He or she will tell you when to start them and how often to do them. What if my symptoms don't get better? If your symptoms don't get better, talk with your doctor or nurse. He or she can suggest other treatments, such as physical therapy or a shot of medicine in the tendon. FOLLOW-UP WITH ORTHO FOR FURTHER EVAL AND TO DISCUSS TREATMENT OPTIONS.
== END 2017-06-04 09:23 | disposition home or self-care (01) ==
LOC: UCEAST 07:27
DX: M77.11 Lateral epicondylitis, right elbow (principal); E78.5 Hyperlipidemia, unspecified; I10 Essential (primary) hypertension
CPT/HCPCS: 99211; G0463

== ENCOUNTER 2017-08-06 15:51 | Emergency (ER) | payer MEDICARE ==
[2017-08-06 16:43] LABS: ABS Basophils 0.1 10^3/ul (0-0.2); ABS Eosinophils 0.3 10^3/ul (0-0.6); ABS Lymphocytes 1.4 10^3/ul (1.0-4.8); ABS Monocytes 0.6 10^3/ul (0-0.8); ABS Neutrophils 4.2 10^3/ul (1.5-7.7); ABS Nucleated RBC 0 10^3/ul; Hematocrit 35 % (42-52); Hemoglobin 11.5 g/dl (14.0-18.0); Lymphocyte % 21.1 % (25-47); Mean Corpuscular HGB Conc 33 g/dl (31-36); Mean Corpuscular Hemoglobin 28 pg (27-31); Mean Corpuscular Volume 84 fL (80-94); Mean Platelet Volume 7.1 um3 (7.4-10.4); Nucleated Red Blood Cells % 0.1; Platelet Count 206 10^3/ul (150-450); Red Blood Count 4.11 10^6/ul (4.0-5.4); Red Cell Distribution Width 14 % (10.5-15); White Blood Count 6.5 10^3/ul (3.5-10.8)
[2017-08-06 16:59] LABS: EGFR Non-African American 75.4 (>60)
--- NOTE | 2017-08-06 16:59 | RAD ---
Indication: Dizziness. CT of the brain was performed without IV contrast. Comparison is made with previous exam dated August 25, 2016. Ventricular structures are midline. No midline shift is noted. Central and cortical atrophy is noted. Periventricular lucency consistent with chronic ischemic changes noted. There is no evidence of intracranial mass or hemorrhage. No other high or low density lesions are identified. IMPRESSION: Chronic ischemic White matter change with no evidence of intracranial mass or hemorrhage.
--- NOTE | 2017-08-06 17:24 | RAD ---
Indication: Weakness. Comparison is made with previous exam dated June 29, 2012. 2 views of the chest including dual energy PA views are reviewed. Cardiomegaly is noted. Tortuous descending aorta is noted. The lung cotter demonstrate no pleural fluid, pneumonia or pneumothorax. IMPRESSION: No active cardiopulmonary disease is noted.
[2017-08-06 18:44] LABS: Urine Appearance Clear; Urine Blood Negative (Negative); Urine Color Yellow; Urine Ketones Negative (Negative); Urine Protein 1+(30 mg/dL) (Negative); Urine Urobilinogen Negative (Negative)
--- NOTE | 2017-08-06 19:25 | ED ---
Jose Morris Angela, scribed for Pan Chamberlain on 08/06/17 at 1633 . Complex/Multi-Sys Presentation - HPI Summary HPI Summary: This pt is a 67 y/o male presenting to [facility] [place] c/o weakness on the right leg for a couple of days. Per , pt has been more lethargic and weak for the past couple of days. He denies fever, chest pain, SOB, abd pain, headache, numbness. PMHx includes stroke 1 year ago, with deficit of weakness on the left side. - History Of Current Complaint Chief Complaint: EDWeakness Time Seen by Provider: 08/06/17 16:24 Hx Obtained From: Patient Onset/Duration: Lasting Days, Still Present Timing: Days Severity Currently: Moderate Location: Negative Aggravating Factor(s): nothing Alleviating Factor(s): nothing Associated Signs And Symptoms: Positive: Weakness - on the right leg. Negative : Headache, SOB, Chest Pain, Abdominal Pain, Fever, Other - numbness - Allergies/Home Medications Allergies/Adverse Reactions: Allergies Allergy/AdvReac Type Severity Reaction Status Date / Time lactose Allergy GI Upset Verified 08/06/17 16:05 PMH/Surg Hx/FS Hx/Imm Hx Cardiovascular History: Reports: Hx Hypertension - on meds Denies: Hx Pacemaker/ICD Respiratory History: Reports: Hx Sleep Apnea Sensory History: Reports: Hx Contacts or Glasses Denies: Hx Hearing Aid Opthamlomology History: Reports: Hx Contacts or Glasses Psychiatric History: Denies: Hx Panic Disorder - Surgical History Surgery Procedure, Year, and Place: Hemorrhoidectomy Infectious Disease History: No Infectious Disease History: Denies: Traveled Outside the [place] in Last 30 Days - Family History Known Family History: Positive: Cardiac Disease, Hypertension, Diabetes, Other - CVA - Social History Alcohol Use: None Substance Use Type: Reports: None Smoking Status (MU): Never Smoked Tobacco Have You Smoked in the Last Year: No Review of Systems Negative: Fever, Chills Negative: Chest Pain Negative: Shortness Of Breath Negative: Abdominal Pain Positive: Weakness. Negative: Headache, Numbness All Other Systems Reviewed And Are Negative: Yes Physical Exam - Summary Physical Exam Summary: Appearance: Well appearing, no pain distress Skin: warm, dry, reflects adequate perfusion Head/face: normal Eyes: EOMI, ANH ENT: normal Neck: supple, nontender Respiratory: CTA, breath sounds present Cardiovascular: RRR, pulses symmetrical Abdomen: nontender, soft Bowel: present Musculoskeletal: normal, strength/ROM intact Neuro: normal, sensory motor intact, A&Ox3 GCS: 15 Triage Information Reviewed: Yes Vital Signs On Initial Exam: Initial Vitals Temp Pulse Resp BP Pulse Ox 98.7 F 65 16 133/97 96 08/06/17 16:05 08/06/17 16:05 08/06/17 16:05 08/06/17 16:05 08/06/17 16:05 Vital Signs Reviewed: Yes Diagnostics - Vital Signs Vital Signs Temp Pulse Resp BP Pulse Ox 08/06/17 16:05 98.7 F 65 16 133/97 96 - Laboratory Lab Results: Lab Results 08/06/17 08/06/17 08/06/17 Range/Units 16:26 16:26 16:26 WBC 6.5 (3.5-10.8) 10^3/ul RBC 4.11 (4.0-5.4) 10^6/ul Hgb 11.5 L (14.0-18.0) g/dl Hct 35 L (42-52) % MCV 84 (80-94) fL MCH 28 (27-31) pg MCHC 33 (31-36) g/dl RDW 14 (10.5-15) % Plt Count 206 (150-450) 10^3/ul MPV 7.1 L (7.4-10.4) um3 Neut % (Auto) 64.8 (38-83) % Lymph % (Auto) 21.1 L (25-47) % Boyd % (Auto) 9.2 H (0-7) % Eos % (Auto) 4.0 (0-6) % Baso % (Auto) 0.9 (0-2) % Absolute Neuts (auto) 4.2 (1.5-7.7) 10^3/ul Absolute Lymphs (auto) 1.4 (1.0-4.8) 10^3/ul Absolute Monos (auto) 0.6 (0-0.8) 10^3/ul Absolute Eos (auto) 0.3 (0-0.6) 10^3/ul Absolute Basos (auto) 0.1 (0-0.2) 10^3/ul Absolute Nucleated RBC 0 10^3/ul Nucleated RBC % 0.1 D-Dimer, Quantitative (Less Than 230) ng/mL Sodium 138 L (139-145) mmol/L Potassium 4.1 (3.5-5.0) mmol/L Chloride 103 (101-111) mmol/L Carbon Dioxide 29 (22-32) mmol/L Anion Gap 6 (2-11) mmol/L BUN 20 (6-24) mg/dL Creatinine 0.99 (0.67-1.17) mg/dL Est GFR ( Amer) 97.0 (>60) Est GFR (Non-Af Amer) 75.4 (>60) BUN/Creatinine Ratio 20.2 H (8-20) Glucose 85 (70-100) mg/dL Lactic Acid 0.9 (0.5-2.0) mmol/L Calcium 9.6 (8.6-10.3) mg/dL Total Bilirubin 0.90 (0.2-1.0) mg/dL AST 22 (13-39) U/L ALT 17 (7-52) U/L Alkaline Phosphatase 62 (34-104) U/L Troponin I 0.03 (<0.04) ng/mL Total Protein 7.9 (6.4-8.9) g/dL Albumin 4.0 (3.2-5.2) g/dL Globulin 3.9 (2-4) g/dL Albumin/Globulin Ratio 1.0 (1-3) Urine Color Urine Appearance Urine pH (5-9) Ur Specific Ellsworth (1.010-1.030) Urine Protein (Negative) Urine Ketones (Negative) Urine Blood (Negative) Urine Nitrate (Negative) Urine Bilirubin (Negative) Urine Urobilinogen (Negative) Ur Leukocyte Esterase (Negative) Urine WBC (Auto) (Absent) Urine RBC (Auto) (Absent) Ur Squamous Epith Cells (Absent) Urine Bacteria (Absent) Urine Glucose (Negative) 08/06/17 08/06/17 Range/Units 16:26 18:26 WBC (3.5-10.8) 10^3/ul RBC (4.0-5.4) 10^6/ul Hgb (14.0-18.0) g/dl Hct (42-52) % MCV (80-94) fL MCH (27-31) pg MCHC (31-36) g/dl RDW (10.5-15) % Plt Count (150-450) 10^3/ul MPV (7.4-10.4) um3 Neut % (Auto) (38-83) % Lymph % (Auto) (25-47) % Boyd % (Auto) (0-7) % Eos % (Auto) (0-6) % Baso % (Auto) (0-2) % Absolute Neuts (auto) (1.5-7.7) 10^3/ul Absolute Lymphs (auto) (1.0-4.8) 10^3/ul Absolute Monos (auto) (0-0.8) 10^3/ul Absolute Eos (auto) (0-0.6) 10^3/ul Absolute Basos (auto) (0-0.2) 10^3/ul Absolute Nucleated RBC 10^3/ul Nucleated RBC % D-Dimer, Quantitative 217 (Less Than 230) ng/mL Sodium (139-145) mmol/L Potassium (3.5-5.0) mmol/L Chloride (101-111) mmol/L Carbon Dioxide (22-32) mmol/L Anion Gap (2-11) mmol/L BUN (6-24) mg/dL Creatinine (0.67-1.17) mg/dL Est GFR ( Amer) (>60) Est GFR (Non-Af Amer) (>60) BUN/Creatinine Ratio (8-20) Glucose (70-100) mg/dL Lactic Acid (0.5-2.0) mmol/L Calcium (8.6-10.3) mg/dL Total Bilirubin (0.2-1.0) mg/dL AST (13-39) U/L ALT (7-52) U/L Alkaline Phosphatase (34-104) U/L Troponin I (<0.04) ng/mL Total Protein (6.4-8.9) g/dL Albumin (3.2-5.2) g/dL Globulin (2-4) g/dL Albumin/Globulin Ratio (1-3) Urine Color Yellow Urine Appearance Clear Urine pH 6.0 (5-9) Ur Specific Ellsworth 1.020 (1.010-1.030) Urine Protein 1+(30 mg/dl) A (Negative) Urine Ketones Negative (Negative) Urine Blood Negative (Negative) Urine Nitrate Negative (Negative) Urine Bilirubin Negative (Negative) Urine Urobilinogen Negative (Negative) Ur Leukocyte Esterase Negative (Negative) Urine WBC (Auto) Absent (Absent) Urine RBC (Auto) Trace(0-2/hpf) (Absent) Ur Squamous Epith Cells Present A (Absent) Urine Bacteria Absent (Absent) Urine Glucose Negative (Negative) Result Diagrams: 08/06/17 16:26 08/06/17 16:26 Lab Statement: Any lab studies that have been ordered have been reviewed, and results considered in the medical decision making process. - Radiology Chest XR Xray Interpretation: No Acute Changes - IMPRESSION: No active cardiopulmonary disease is noted. Dr. Chamberlain has reviewed this radiology report. Radiology Interpretation Completed By: Radiologist - CT Brain CT CT Interpretation: No Acute Changes - IMPRESSION: Chronic ischemic white matter chagne with no evidence of intracranial mass or hemorrhage. Dr. Chamberlain has reviewed this radiology report. CT Interpretation Completed By: Radiologist - EKG 16:04 Cardiac Rate: Bradycardia - at 58 bpm EKG Rhythm: Sinus Bradycardia EKG Interpretation: No acute changes EKG Comparison: No Significant Change - compared to 08/25/16. Re-Evaluation - Re-Evaluation First Eval Re-Evaluation Time: 19:02 Comment: On re-evaluation pt has no weakness. I reviewed the lab and XR results with the pt and . Pt will be discharged home. Complex Multi-Symp Course/Dx Assessment/Plan: Pt is a 67 y/o male presenting to [facility] [place] c/o weakness on the right leg for a couple of days. Blood work, UA, brain CT, chest XR and EKG were obtained. Chest XR is negative. Brain CT is negative. On re-evaluation pt has no weakness. Pt will be discharged home with follow up from his PCP in 3 days. He was given strict return to the ED precautions. - Diagnoses Differential Diagnoses/HQI/PQRI: CVA, Sepsis, Urinary Tract Infection Provider Diagnoses: Weakness Discharge - Sign-Out/Discharge Documenting (check all that apply): Discharge/Admit/Transfer - Discharge - Discharge Plan Condition: Stable Disposition: HOME Patient Education Materials: Weakness (ED) Forms: *Work Release Referrals: Michael rCooks MD [Primary Care Provider] - 3 Days Additional Instructions: Please follow up with your primary care provider in 3 days. RETURN TO THE ED FOR ANY WORSENING SYMPTOMS. - Billing Disposition and Condition Condition: STABLE Disposition: HOME The documentation as recorded by the Jose moctezuma Angela accurately reflects the service I personally performed and the decisions made by , Pan Chamberlain.
[2017-08-06 19:28] VITALS: BP 138/99
== END 2017-08-06 19:28 | disposition home or self-care (01) ==
LOC: ED 15:51
DX: R53.1 Weakness (principal)
CPT/HCPCS: 36415; 70450; 71046; 80053; 81003; 81015; 83605; 84484; 85025; 85379; 93005; 99283

== ENCOUNTER 2017-11-19 18:39 | Emergency (ER) | payer MEDICARE ==
[2017-11-19 19:58] VITALS: BP 142/76
--- NOTE | 2017-11-19 20:03 | UC ---
Back Pain HPI - HPI Summary HPI Summary: 67 male presents with right sided mid back pain since this morning. He tells me that this morning he bent down to put on his shoes to go to work and on his way upright had a pull in his right mid back. Since that time has had significant pain in the area. His gave him some tylenol which helped for a few hours. As the day has progressed the area has gotten more stiff and he is walking hunched over due to the pain. Denies SOB, chest pain, abdominal pain, n/v, dysuria, numbness or tingling, saddle anesthesia, or loss of bowel/bladder function. - History of Current Complaint Chief Complaint: UCBackPain Stated Complaint: SIDE AND BACK PAIN Time Seen by Provider: 11/19/17 20:03 Hx Obtained From: Patient Onset/Duration: Sudden Onset Timing: Constant Severity Initially: Severe Severity Currently: Severe Pain Intensity: 7 Pain Scale Used: 0-10 Numeric Character: Aching Aggravating Factor(s): Movement Alleviating Factor(s): Rest, Position - Allergies/Home Medications Allergies/Adverse Reactions: Allergies Allergy/AdvReac Type Severity Reaction Status Date / Time lactose Allergy GI Upset Verified 08/06/17 16:05 Home Medications: Home Medications Acetaminophen [Tylenol] 11/19/17 [History] PMH/Surg Hx/FS Hx/Imm Hx - Additional Past Medical History Additional PMH: CVA 2017 Endocrine History: Dyslipidemia - Surgical History Surgical History: None Surgery Procedure, Year, and Place: Hemorrhoidectomy - Family History Known Family History: Positive: Cardiac Disease, Hypertension, Diabetes, Other - CVA - Social History Occupation: Employed Part-time, Retired Lives: With Family Alcohol Use: None Substance Use Type: None Smoking Status (MU): Never Smoked Tobacco Have You Smoked in the Last Year: No - Immunization History Most Recent Influenza Vaccination: Never Most Recent Pneumonia Vaccination: Never Review of Systems Constitutional: Negative Skin: Negative Respiratory: Negative Cardiovascular: Negative Gastrointestinal: Negative Genitourinary: Negative Neurovascular: Negative Musculoskeletal: Other: - Right sided mid back pain Neurological: Negative Psychological: Negative All Other Systems Reviewed And Are Negative: Yes Physical Exam - Summary Physical Exam Summary: GENERAL: NAD. WDWN. No pain distress. SKIN: No rashes, sores, lesions, or open wounds. NECK: Supple. FROM. Nontender. CHEST: CTAB. No r/r/w. No accessory muscle use. Breathing comfortably and in no distress. CV: RRR. Without m/r/g. Pulses intact. Brisk cap refill. MSK: TTP over right sided thoracic paraspinal muscles. Pain with flexion and extension of spine. Pain with extension and lifting of right UE. Strength 5/5 B/ L LEs including dorsiflexion and plantar flexion. FROM B/L LEs. No edema. NEURO: Alert. CN II-XII grossly intact. Sensations intact B/L LEs L3-S1. PSYCH: Age appropriate behavior. Triage Information Reviewed: Yes Vital Signs: Initial Vital Signs Temp 97.9 F 11/19/17 19:51 Pulse 55 11/19/17 19:51 Resp 16 11/19/17 19:51 BP 142/76 11/19/17 19:51 Pulse Ox 98 11/19/17 19:51 Vital Signs Reviewed: Yes Back Pain Course/Dx - Course Course Of Treatment: Suspect muscle strain/spasm. Will avoids NSAIDs and muscle relaxers due to his recent CVA. Continue with tylenol. Apply heat to the area. Rx for lidoderm patches. Practice strengthening exercises as printed. F/u with PCP if symptoms persist. - Differential Dx/Diagnosis Provider Diagnoses: Mid back strain Discharge - Sign-Out/Discharge Documenting (check all that apply): Patient Departure - Discharge Plan Condition: Stable Disposition: HOME Prescriptions: Lidocaine PATCH 5%* [Lidoderm 5% Patch*] 1 patch TRANSDERM DAILY PRN #1 box PRN Reason: Pain Patient Education Materials: Core Strengthening Exercises (GEN), Thoracic Back Strain (ED), Core Strengthening Exercises (ED) Forms: *Work Release Referrals: Michael Crooks MD [Primary Care Provider] - Additional Instructions: If you develop a fever, shortness of breath, chest pain, new or worsening symptoms - please call your PCP or go to the ED. - Billing Disposition and Condition Condition: STABLE Disposition: Home
== END 2017-11-19 20:47 | disposition home or self-care (01) ==
LOC: UCEAST 18:39
DX: S29.012A Strain of muscle and tendon of back wall of thorax, initial encounter (principal); X50.1XXA Overexertion from prolonged static or awkward postures, initial encounter; Y93.9 Activity, unspecified; Y92.9 Unspecified place or not applicable; Z82.49 Family history of ischemic heart disease and other diseases of the circulatory system; Z83.3 Family history of diabetes mellitus; Z82.3 Family history of stroke
CPT/HCPCS: 99211; G0463

== ENCOUNTER 2019-03-10 21:48 | Emergency (ER) | payer MEDICARE ==
[2019-03-10 22:02] VITALS: BP 163/100
--- NOTE | 2019-03-10 22:04 | UC ---
Cardiac HPI - HPI Summary HPI Summary: 69 yo man with hypertension and history of TIA/stroke, with one day history of increasing pain in the right pectoral area, without associated shortness of breath. He has pain with movement. Initially reported no injury, but more questions reveal that he push/pulled a wardrobe across the room yesterday without assistance. He had some relief of pain with use of acetaminophen. Stopped smoking more than 40 years ago, takes a statin and low dose aspirin daily. - History of Current Complaint Stated Complaint: RT SHOULDER/CHEST PAIN Time Seen by Provider: 03/10/19 21:55 Hx Obtained From: Patient Onset/Duration: Sudden Onset - first noted this morning on arising, Lasting Hours - about 12 Timing: Constant Initial Severity: Moderate Current Severity: Moderate Pain Intensity: 3 Chest Pain Location: Right Anterior Character: Dull/Aching, Tightness Alleviating Factor(s): Rest, Position Associated Signs & Symptoms: Positive: Chest Pain, Abdominal Pain - he has some epigastric pain which radiates to the back on occasion. 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 Negative: Headaches, Diaphoresis, Back Pain - Risk Factors Pulmonary Embolism Risk Factors: Negative Cardiac Risk Factors: Negative, Hypertension Atrial Fibrillation: Hypertension TAD Risk Factors: Negative - Allergy/Home Medications Allergies/Adverse Reactions: Allergies Allergy/AdvReac Type Severity Reaction Status Date / Time lactose Allergy GI Upset Verified 03/10/19 22:03 Home Medications: Home Medications Acetaminophen TAB* [Tylenol TAB*] 650 mg PO Q4H PRN 03/10/19 [History Confirmed 03/10/19] PMH/Surg Hx/FS Hx/Imm Hx Previously Healthy: Yes - stays fit and active Cardiovascular History: Hypertension - Surgical History Surgical History: None Surgery Procedure, Year, and Place: Hemorrhoidectomy - Family History Known Family History: Positive: Cardiac Disease, Hypertension, Diabetes, Other - CVA - Social History Alcohol Use: None Substance Use Type: None Smoking Status (MU): Never Smoked Tobacco Have You Smoked in the Last Year: No - Immunization History Most Recent Influenza Vaccination: Never Most Recent Pneumonia Vaccination: Never Review of Systems All Other Systems Reviewed And Are Negative: Yes Constitutional: Positive: Negative Skin: Positive: Negative Eyes: Positive: Negative ENT: Positive: Negative Respiratory: Positive: Shortness Of Breath Cardiovascular: Positive: Chest Pain Gastrointestinal: Positive: Other - reflux at times Genitourinary: Positive: Negative Motor: Positive: Negative Neurovascular: Positive: Other - states no persistent left sided weakness post stroke Musculoskeletal: Positive: Arthralgia - often has aches and pains Neurological: Positive: Negative Psychological: Positive: Negative Is Patient Immunocompromised?: No Physical Exam Triage Information Reviewed: Yes Appearance: Well-Appearing, Pain Distress - mild Eyes: Positive: Conjunctiva Clear ENT: Positive: Pharynx normal Neck: Positive: Supple, Nontender, No Lymphadenopathy Respiratory Exam: Other - tenderness pectoral insertion. Respiratory: Positive: Lungs clear, Normal breath sounds, No respiratory distress Cardiovascular: Positive: RRR, No Murmur Abdomen Description: Positive: Nontender, No Organomegaly, Soft Musculoskeletal Exam: Other - No cervical spine tenderness. Mild TTP anterior joint line of shoulder. Tender at insertion of right pectoral on humerus Musculoskeletal: Positive: Strength Intact, ROM Limited @ - right shoulder with decreased abduction, with pain with IR and ER along with forward flexion. Neurological Exam: Other - No facial asymmetry or pronator drift. Neurological: Positive: Alert, Muscle Tone Normal Psychological Exam: Normal Skin Exam: Normal Diagnostics - EKG Cardiac Rhythm: Sinus: Normal Ectopy: None ST Segment: Other EKG Comparison: No Significant Change - compared to 2017 and 2018 EKG's, the ST elevation in leads V2 and V3 are old. - Assessment/Plan Course Of Treatment: Discussed that findings are most consistent with an MSK strain from moving furniture. His family was concerned about recurrent TIA given lack of symptoms other than weakness when he had his past TIA. We reviewed the event that most likely triggered the pain. Mr. Bass declined pain medications and overall was not concerned about the pain , but his family had insisted that he come. - Differential Diagnoses - Chest Pain Differential Diagnosis/HQI/PQRI: Acute MA, Pulmonary Embolism - Clinical Impression Provider Diagnosis: Right-sided chest wall pain Discharge ED - Sign-Out/Discharge Documenting (check all that apply): Patient Departure All imaging exams completed and their final reports reviewed: No Studies - Discharge Plan Condition: Stable Disposition: HOME Patient Education Materials: Chest Wall Pain (ED) Referrals: Michael Crooks MD [Primary Care Provider] - Additional Instructions: After discussion, it is likely that the cause of your right shoulder and chest pain is related to moving a wardrobe yesterday. Use a warm compress to the shoulder and continue use of acetaminophen 650mg uup to 4 times per day. This pain should improve within a week. Please follow up with Dr. Crooks if you are not seeing improvement. - Billing Disposition and Condition Condition: STABLE Disposition: Home
== END 2019-03-10 22:29 | disposition home or self-care (01) ==
LOC: UCEAST 21:48
DX: R07.89 Other chest pain (principal); R06.02 Shortness of breath; R10.13 Epigastric pain; I10 Essential (primary) hypertension; Z79.82 Long term (current) use of aspirin; Z86.73 Personal history of transient ischemic attack (TIA), and cerebral infarction without residual deficits; Z91.011 Allergy to milk products
CPT/HCPCS: 93005; 99211; G0463

== ENCOUNTER 2024-02-28 13:36 | Observation (INO) ==
[2024-02-28 16:26] LABS: Albumin 4.1 g/dL (3.2-5.2); Albumin/Globulin Ratio 1.1 (1-3); Calcium 9.8 mg/dL (8.6-10.3); Creatinine, Serum 0.97 mg/dL (0.67-1.17); Globulin 3.7 g/dL (2-4); Total Bilirubin 1.3 mg/dL (0.2-1.0); Total Protein 7.8 g/dL (6.4-8.9); eGFR CKD-EPI 81.9 (>60)
[2024-02-28 16:46] LABS: Potassium 3.8 mmol/L (3.5-5.0)
[2024-02-28 17:21] LABS: ABS Basophils 0.1 10^3/uL (0.0-0.1); ABS Eosinophils 0.1 10^3/uL (0.0-0.5); ABS Lymphocytes 1.2 10^3/uL (1.0-4.8); ABS Monocytes 0.8 10^3/uL (0.0-1.1); ABS Neutrophils 5.7 10^3/uL (1.5-7.6); ABS Nucleated RBC 0.02 10^3/ul; Eosinophil % 1.7 %; Hematocrit 37.1 % (38-53); Hemoglobin 12.4 g/dL (13.2-16.3); Lymphocyte % 14.7 %; Mean Corpuscular Hemoglobin 28.8 pg (27-33); Mean Corpuscular Hgb Conc 33.5 g/dL (31-36); Mean Corpuscular Volume 85.8 fL (80-97); Mean Platelet Volume 8.1 fL (7.5-11.2); Nucleated Red Blood Cells % 0.3 %/100WBC (0.0-0.8); Platelet Count 253 10^3/uL (150-450); Red Blood Count 4.32 10^6/uL (4.06-5.63); Red Cell Distribution Width 14.5 % (12-17); White Blood Count 7.9 10^3/uL (3.6-10.2)
[2024-02-28] MEDS: Iohexol 350 (CONTRAST) 500 ML MDV IV ONE (17:24)
[2024-02-28 17:42] LABS: High Sensitivity Troponin 1 Hr 7 pg/mL (<20)
[2024-02-29 06:40] LABS: Hematocrit 34.3 % (38-53); Hemoglobin 11.5 g/dL (13.2-16.3); Mean Corpuscular Hemoglobin 28.9 pg (27-33); Mean Corpuscular Hgb Conc 33.5 g/dL (31-36); Mean Corpuscular Volume 86.3 fL (80-97); Mean Platelet Volume 7.4 fL (7.5-11.2); Platelet Count 248 10^3/uL (150-450); Red Blood Count 3.97 10^6/uL (4.06-5.63); Red Cell Distribution Width 14.5 % (12-17); White Blood Count 8.1 10^3/uL (3.6-10.2)
[2024-02-29 06:45] LABS: ABS Basophils 0.1 10^3/uL (0.0-0.1); ABS Eosinophils 0.2 10^3/uL (0.0-0.5); ABS Lymphocytes 1.2 10^3/uL (1.0-4.8); ABS Monocytes 0.9 10^3/uL (0.0-1.1); ABS Nucleated RBC 0.01 10^3/ul; Eosinophil % 1.8 %; Nucleated Red Blood Cells % 0.1 %/100WBC (0.0-0.8)
[2024-02-29 07:28] LABS: Calcium 9.3 mg/dL (8.6-10.3); Creatinine, Serum 0.94 mg/dL (0.67-1.17); Magnesium 1.7 mg/dL (1.9-2.7); eGFR CKD-EPI 85.1 (>60)
[2024-02-29 08:15] LABS: C Reactive Protein 8.25 mg/L (<8.01)
[2024-02-29] MEDS: Mirabegron 25 mg ER TAB (NF) PO SCH (09:01)
[2024-02-29] MEDS: Magnesium Sulfate 2 gm BAG 2 GM/50 ML BAG IVPB ONE (09:30)
[2024-02-29] MEDS: Magnesium Sulfate IV 1GM/100ML 1 GM/100 ML BAG IV ONE (10:30)
[2024-02-29] MEDS: cefTRIAXone 1 gm/50 mL D5W 1 GM/50 ML BAG IV SCH (14:07)
[2024-02-29] MEDS: Azithromycin 500 mg/250 ml NS 500 MG/250 ML BAG IVPB SCH ×2 (14:56→16:41)
[2024-02-29] MEDS: Nirmatrelvir/Ritonavir 300 mg/100 mg (eGFR > 60) 1 Dose Blister Card PO SCH (20:54)
[2024-03-01 06:22] LABS: ABS Eosinophils 0.1 10^3/uL (0.0-0.5); ABS Monocytes 0.8 10^3/uL (0.0-1.1); ABS Neutrophils 5.9 10^3/uL (1.5-7.6); ABS Nucleated RBC 0.01 10^3/ul; Eosinophil % 1.7 %; Hematocrit 31.8 % (38-53); Hemoglobin 10.7 g/dL (13.2-16.3); Lymphocyte % 12.9 %; Mean Corpuscular Hemoglobin 28.8 pg (27-33); Mean Corpuscular Hgb Conc 33.6 g/dL (31-36); Mean Corpuscular Volume 85.7 fL (80-97); Mean Platelet Volume 7.6 fL (7.5-11.2); Nucleated Red Blood Cells % 0.1 %/100WBC (0.0-0.8); Platelet Count 229 10^3/uL (150-450); Red Blood Count 3.72 10^6/uL (4.06-5.63); Red Cell Distribution Width 14.5 % (12-17); White Blood Count 7.9 10^3/uL (3.6-10.2)
[2024-03-01 06:41] LABS: Calcium 9.1 mg/dL (8.6-10.3); Creatinine, Serum 0.95 mg/dL (0.67-1.17); Magnesium 1.9 mg/dL (1.9-2.7); Potassium 4.2 mmol/L (3.5-5.0)
[2024-03-01 11:51] VITALS: BP 139/98
[2024-03-01] MEDS ORDERED: cefTRIAXone 1 gm/50 mL D5W 1 GM/50 ML BAG IV SCH (14:00)
[2024-03-02 12:45] LABS: TB1 Ag minus Nil Result -0.01 IU/mL
[2024-03-02 12:53] LABS: QuantiferonTb Gold Plus Result Negative (Negative)
== END 2024-03-01 11:50 | disposition home or self-care (01) ==
LOC: ED 13:36 → SUATTDRO 20:42 → INTOOBSV 20:42 → EDHOLD 20:42 → MEDTELE 02-29 14:29
PROVIDERS: ADMIT Student in an Organized Health Care Education/Training Program; ATTEND Internal Medicine

== ENCOUNTER 2024-03-22 12:07 | Inpatient (IN) ==
[2024-03-22 15:39] LABS: ABS Basophils 0.1 10^3/uL (0.0-0.1); ABS Eosinophils 0.2 10^3/uL (0.0-0.5); ABS Lymphocytes 1.3 10^3/uL (1.0-4.8); ABS Monocytes 0.5 10^3/uL (0.0-1.1); ABS Neutrophils 4.3 10^3/uL (1.5-7.6); ABS Nucleated RBC 0.01 10^3/ul; Eosinophil % 3.4 %; Hematocrit 30.4 % (38-53); Hemoglobin 10.2 g/dL (13.2-16.3); Lymphocyte % 19.6 %; Mean Corpuscular Hgb Conc 33.7 g/dL (31-36); Mean Platelet Volume 7.6 fL (7.5-11.2); Nucleated Red Blood Cells % 0.1 %/100WBC (0.0-0.8); Platelet Count 232 10^3/uL (150-450); Red Blood Count 3.53 10^6/uL (4.06-5.63); Red Cell Distribution Width 15.2 % (12-17); White Blood Count 6.4 10^3/uL (3.6-10.2)
[2024-03-22 16:04] LABS: Albumin 4.1 g/dL (3.2-5.2); Albumin/Globulin Ratio 1.2 (1-3); Calcium 9.5 mg/dL (8.6-10.3); Creatinine, Serum 0.93 mg/dL (0.67-1.17); Globulin 3.5 g/dL (2-4); Potassium 3.8 mmol/L (3.5-5.0); Total Bilirubin 1.1 mg/dL (0.2-1.0); Total Protein 7.6 g/dL (6.4-8.9); eGFR CKD-EPI 86.2 (>60)
[2024-03-22] MEDS ORDERED: Iohexol 350 (CONTRAST) 500 ML MDV IV ONE (16:53)
[2024-03-22] MEDS: Lactated Ringers 1000 ml BAG 1,000 ML IV SCH (22:04)
[2024-03-23 07:24] LABS: ABS Basophils 0.1 10^3/uL (0.0-0.1); ABS Eosinophils 0.2 10^3/uL (0.0-0.5); ABS Lymphocytes 1.1 10^3/uL (1.0-4.8); ABS Monocytes 0.6 10^3/uL (0.0-1.1); ABS Neutrophils 3.9 10^3/uL (1.5-7.6); Eosinophil % 3.6 %; Hematocrit 31.4 % (38-53); Hemoglobin 10.9 g/dL (13.2-16.3); Lymphocyte % 19.3 %; Mean Corpuscular Hemoglobin 29.7 pg (27-33); Mean Corpuscular Hgb Conc 34.7 g/dL (31-36); Mean Corpuscular Volume 85.4 fL (80-97); Mean Platelet Volume 7.2 fL (7.5-11.2); Nucleated Red Blood Cells % 0.1 %/100WBC (0.0-0.8); Platelet Count 212 10^3/uL (150-450); Red Blood Count 3.68 10^6/uL (4.06-5.63); White Blood Count 5.8 10^3/uL (3.6-10.2)
[2024-03-23 07:43] LABS: Anion Gap 9 mmol/L (2-16); Blood Urea Nitrogen 14 mg/dL (6-24); CO2 Carbon Dioxide 25 mmol/L (22-32); Calcium 9.1 mg/dL (8.6-10.3); Chloride 104 mmol/L (101-111); Creatinine, Serum 0.74 mg/dL (0.67-1.17); Glucose 100 mg/dL (70-100); Potassium 3.6 mmol/L (3.5-5.0); Sodium 138 mmol/L (135-145); eGFR CKD-EPI 95.1 (>60)
[2024-03-23] MEDS: CMCS:Mirabegron 25 mg ER TAB (NF) PO SCH (10:25)
[2024-03-23 11:18] LABS: Magnesium 1.8 mg/dL (1.9-2.7)
[2024-03-23 16:08] LABS: C Reactive Protein 2.14 mg/L (<8.01); Rheumatoid Factor < 10 IU/mL (<15)
[2024-03-23 17:18] LABS: Erythrocyte Sed Rate 42 mm/Hr (0-19)
[2024-03-23] MEDS ORDERED: Benzocaine/Menthol LOZ PO PRN (22:34)
[2024-03-24 06:17] LABS: ABS Eosinophils 0.2 10^3/uL (0.0-0.5); ABS Lymphocytes 1.1 10^3/uL (1.0-4.8); ABS Monocytes 0.6 10^3/uL (0.0-1.1); ABS Neutrophils 4.3 10^3/uL (1.5-7.6); Eosinophil % 3.7 %; Hematocrit 30.2 % (38-53); Hemoglobin 10.3 g/dL (13.2-16.3); Lymphocyte % 17.1 %; Mean Corpuscular Hemoglobin 29.1 pg (27-33); Mean Corpuscular Volume 85.6 fL (80-97); Mean Platelet Volume 7.3 fL (7.5-11.2); Platelet Count 223 10^3/uL (150-450); Red Blood Count 3.54 10^6/uL (4.06-5.63); Red Cell Distribution Width 15.1 % (12-17); White Blood Count 6.2 10^3/uL (3.6-10.2)
[2024-03-24] MEDS: Magnesium Sulf 4 GM/100 ML IV 4,000 MG/100 ML BAG IVPB ONE (10:02)
[2024-03-24] MEDS ORDERED: fentaNYL 100 mcg/2 ml 50 MCG/ML VIAL ONE (14:22)
[2024-03-24] MEDS ORDERED: Rocuronium 50 mg VIAL 10 mg/ml 5 ml VIAL (50 mg) ONE (14:22)
[2024-03-24] MEDS ORDERED: Propofol 10 MG/ML 20 ML BTL ONE (14:22)
[2024-03-24] MEDS ORDERED: Midazolam 2 mg/2 ml VIAL 1 mg/ml 2 ml VIAL (2 mg) ONE (14:22)
[2024-03-24] MEDS ORDERED: Lidocaine 2% PF 5 ML VIAL ONE (14:24)
[2024-03-24] MEDS ORDERED: Benzocaine/Butamben/Tetracain (CETACAINE - SINGLE USE) 5 gm TOPICAL ONE (15:01)
[2024-03-24] MEDS ORDERED: Ondansetron 4 mg VIAL 2 MG/ML 2 ml VIAL ONE (17:02)
[2024-03-25 07:25] LABS: ABS Basophils 0.1 10^3/uL (0.0-0.1); ABS Eosinophils 0.2 10^3/uL (0.0-0.5); ABS Lymphocytes 0.8 10^3/uL (1.0-4.8); ABS Monocytes 0.6 10^3/uL (0.0-1.1); ABS Neutrophils 5.3 10^3/uL (1.5-7.6); Eosinophil % 3.4 %; Hematocrit 29.5 % (38-53); Hemoglobin 10.3 g/dL (13.2-16.3); Lymphocyte % 11.3 %; Mean Corpuscular Hemoglobin 29.8 pg (27-33); Mean Corpuscular Hgb Conc 34.7 g/dL (31-36); Mean Corpuscular Volume 85.8 fL (80-97); Mean Platelet Volume 7.2 fL (7.5-11.2); Platelet Count 208 10^3/uL (150-450); Red Blood Count 3.44 10^6/uL (4.06-5.63); Red Cell Distribution Width 15.4 % (12-17); White Blood Count 7.1 10^3/uL (3.6-10.2)
[2024-03-25 10:05] VITALS: BP 137/90
[2024-03-27 12:03] LABS: Cyclic Citrullinated Peptide 16.9 U
[2024-03-27 12:16] LABS: C-ANCA Negative (Negative); P-ANCA Negative (Negative)
[2024-03-27 12:25] LABS: RNP IgG Antibodies <0.2 U
== END 2024-03-25 12:25 | disposition home or self-care (01) | DRG 202 ==
LOC: EDHOLD 12:07 → ED 12:07 → SUATTDRO 21:00 → SSU 23:01 → MED 03-23 17:13
PROVIDERS: ADMIT Hospitalist; ATTEND Internal Medicine